=== PATIENT | female | born 1995 ===

== ENCOUNTER 2021-10-16 22:28 | Emergency (ER) | payer OTHER, MEDICAID ==
[~2021-10-16] VITALS: Ht 154.9 cm; Wt 47.6 kg
[2021-10-17] MEDS ORDERED: TETANUS-DIPTH-ACEL PERTUSSIS 0.5ML SYR Tdap IM ONE (01:15)
[2021-10-17] MEDS ORDERED: ACETAMINOPHEN 325 MG TAB PO ONE (01:30)
[2021-10-17] MEDS ORDERED: IBUP800T27 PO (02:37)
[2021-10-17] MEDS ORDERED: KETOROLAC TROMETH 30 MG/ML 1ML VIAL IM ONE (02:45)
[2021-10-17 06:15] VITALS: BP 138/87
== END 2021-10-17 03:41 | disposition home or self-care (01) ==
LOC: ER 22:39
DX: S81.801A Unspecified open wound, right lower leg, initial encounter (principal); W54.0XXA Bitten by dog, initial encounter; Y93.89 Activity, other specified; Y92.89 Other specified places as the place of occurrence of the external cause; Y99.8 Other external cause status
CPT/HCPCS: 90471; 90715; 96372; 99284; J1885